=== PATIENT | female | born 1930 | race Caucasian/White ===

== ENCOUNTER 2017-02-21 07:02 | Day surgery (SDC) | payer MEDICARE, OTHER ==
[2017-02-17 10:44] VITALS: BMI 27.1
[2017-02-21] MEDS ORDERED: LIDOCAINE HCL 1%, 10 MG/ML (20ML VIAL) ONE (07:05)
[2017-02-21] MEDS ORDERED: BUPIVACAINE HCL/PF 2.5 MG/ML - 30 ML VIAL IJ ONE (07:05)
[2017-02-21] MEDS ORDERED: LIDOCAINE 1%-EPI 1:100,000 30 ML MDV IJ ONE ×2 (07:05→07:34)
[2017-02-21] MEDS ORDERED: PROPOFOL 20 ML ONE (07:17)
[2017-02-21] MEDS ORDERED: SUCCINYLCHOLINE CHLORIDE 200 MG/10 ML VIAL ONE (07:17)
[2017-02-21] MEDS ORDERED: LIDOCAINE HCL/PF 2% SDV 5ML VIAL ONE (07:20)
[2017-02-21] MEDS ORDERED: ceFAZolin SODIUM 1 GM VIAL ONE (08:11)
[2017-02-21] MEDS ORDERED: ONDANSETRON 4 MG/2 ML VIAL ONE (08:12)
[2017-02-21] MEDS ORDERED: DEXAMETHASONE SOD PHOSPHATE 4 MG/1 ML VIAL ONE (08:12)
[2017-02-21] MEDS ORDERED: ACETAMINOPHEN 325 MG TABLET (FP) PO PRN (09:34)
[2017-02-21] MEDS ORDERED: LACTATED RINGERS SOLUTION 1,000 ML IV SCH ×2 (09:45→10:00)
[2017-02-21 09:49] VITALS: TEMP 97.5
[2017-02-21] MEDS ORDERED: oxyCODONE HCL 5 MG TABLET PO PRN ×2 (09:57)
[2017-02-21] MEDS ORDERED: ONDANSETRON 4 MG/2 ML VIAL IVPB PRN (09:57)
[2017-02-21 10:24] VITALS: PULSE 62
[2017-02-21 11:09] VITALS: BP 120/60
--- NOTE | 2017-02-21 16:52 | OP ---
DATE OF OPERATION: 02/21/2017 PROCEDURE: Division and inset of right-sided nasolabial flap reconstruction of nose. PREOPERATIVE DIAGNOSIS: Basal cell carcinoma to the nose status post first stage of nasolabial flap reconstruction. POSTOPERATIVE DIAGNOSIS: Basal cell carcinoma to the nose status post first stage of nasolabial flap reconstruction. ANESTHESIA: General endotracheal anesthesia with a laryngeal mask airway. PROCEDURE: Patient was marked in the holding area, awake and aware of all incisions and resulting scars, brought to the operating room and placed in supine position. Anesthesia is general endotracheal anesthesia with a laryngeal mask airway. Patient is positioned awake, positioned and carefully checked by surgical anesthesia teams. Sequential pressure stockings were applied. She was given 1 gm of Ancef preoperatively. She was prepped and draped in standard sterile fashion. A timeout was called. Patient's procedure and sites were verified. The patient was given 9 mL of 1% lidocaine, 1:1000 epinephrine to the surrounding surgical tissues after which the flap is then divided at its base, and the base of the flap is excised. The skin is undermined and closed with an interrupted buried deep dermal 4-0 Monocryl suture followed by a running 6-0 nylon suture. The flap is then trimmed and defatted. A defect along the alar is created to inset the flap. The flap is then inset after hemostasis is achieved with interrupted 6-0 nylon suture, was dressed with bacitracin. Tissues are pink and viable. Patient was awoken from anesthesia having tolerated the procedure well. SUKI ASIF M.D. [id number]
== END 2017-02-21 11:25 | disposition home or self-care (01) ==
LOC: FASU 07:02
PROVIDERS: ATTEND Plastic Surgery
PROC: 0H81XZZ Division of Face Skin, External Approach (ICD-10-PCS; principal; 2017-02-21 08:29)
DX: C44.311 Basal cell carcinoma of skin of nose (principal)
CPT/HCPCS: 94760